=== PATIENT | female | born 1995 | race Two or more races ===

== ENCOUNTER 2024-07-01 04:50 | Emergency (ER) | payer OTHER ==
[~2024-07-01] VITALS: Ht 152.4 cm; Wt 58.1 kg
[~2024-07-01 04:50] MED LIST: FOLIC ACID20 MG PO; LOPERAMIDE 2 MG; PHENERGAN25 MG PO; SINGULAIR10 MG PO; TIGAN100 MG/M2 IM; TYLENOL100 MG/ML PO; ZANTAC 7575 MG PO
[2024-07-01] MEDS ORDERED: KETOROLAC TROMETHAMINE 60 MG VIAL IM STA (05:34)
[2024-07-01] MEDS ORDERED: KETOROLAC TROMETHAMINE 60 MG VIAL IM ONE (05:37)
== END 2024-07-01 06:08 | disposition home or self-care (01) ==
LOC: ER 04:51
DX: M94.0 Chondrocostal junction syndrome [Tietze] (principal); R07.89 Other chest pain